=== PATIENT | female | born 1955 | race Caucasian/White ===

== ENCOUNTER 2019-05-20 11:55 | Inpatient (IN) | payer OTHER, MEDICAID ==
[~2019-05-20] VITALS: Ht 170.2 cm; Wt 79.8 kg
[2019-05-20 11:55] VITALS: BP_SYST 96
[2019-05-20] MEDS ORDERED: LORazepam 1 MG TABLET PO ONE (12:15)
[2019-05-20 12:48] LABS: BASOPHILS % (AUTO) 0.4 % (0.0-2.0); EOSINOPHILS % (AUTO) 0.4 % (0.0-4.0); HEMOGLOBIN 13.4 g/dL (12.0-16.0); LYMPHOCYTES # (AUTO) 1.9 K/uL (1.0-5.5); LYMPHOCYTES % (AUTO) 35.7 % (20.5-51.5); MEAN CORPUSCULAR HEMOGLOBIN 35 pg (27-31); MEAN CORPUSCULAR HGB CONC 34 % (32-36); MEAN CORPUSCULAR VOLUME 101 fL (79.0-98.0); MONOCYTES # (AUTO) 0.6 K/uL (0.0-1.0); MONOCYTES % (AUTO) 12.1 % (1.7-9.3); NEUTROPHILS # (AUTO) 2.8 K/uL (1.8-7.7); NEUTROPHILS % (AUTO) 51.4 % (40.0-70.0); PLATELET COUNT (AUTO) 199 K/uL (130-430); RED BLOOD CELL COUNT(AUTO) 3.86 MIL/uL (4.2-6.2); RED CELL DISTRIBUTION WIDTH 12.5 % (9.0-15.0); WHITE BLOOD COUNT (AUTO) 5.4 K/uL (4.8-10.8)
[2019-05-20 12:56] LABS: ANION GAP 6 (5-15); CALCIUM 8.6 mg/dL (8.4-11.0); CHLORIDE 99 mmol/L (98-107); CREATININE 0.84 mg/dL (0.55-1.30); GLUCOSE 91 mg/dL (70-99); POTASSIUM 4.5 mmol/L (3.5-5.1); SODIUM SERUM 133 mmol/L (136-145); UREA NITROGEN, BLOOD 21 mg/dL (8-21)
[2019-05-20 12:59] LABS: GFR AFRICAN AMERICAN 88 mL/min (>90)
[2019-05-20 13:00] LABS: ALANINE AMINOTRANSFERASE 26 U/L (12-78); ALBUMIN 3.6 g/dL (3.4-4.8); ASPARTATE AMINOTRANSFERASE 17 U/L (10-37); CHOLESTEROL 152 mg/dL (<200); HDL CHOLESTEROL 75 mg/dL (>55); LDL CHOLESTEROL 64 mg/dL (<100); TOTAL BILIRUBIN 0.5 mg/dL (0.0-1.0); TRIGLYCERIDES 69 mg/dL (30-150)
[2019-05-20 13:01] LABS: ALCOHOL, BLOOD < 3 mg/dL (<10)
[2019-05-20 14:23] LABS: BILIRUBIN,URINE NEGATIVE (NEGATIVE); BLOOD, URINE 1+ (NEGATIVE); CLARITY/URINE SL CLOUDY (CLEAR); COLOR,URINE YELLOW (YELLOW); GLUCOSE,URINE NEGATIVE (NEGATIVE); KETONES,URINE NEGATIVE (NEGATIVE); LEUKOCYTE ESTERASE ,URINE 2+ (NEGATIVE); NITRITE, URINE NEGATIVE (NEGATIVE); PROTEIN URINE NEGATIVE (NEGATIVE); UROBILINOGEN,URINE 0.2 (0.2-1.0)
[2019-05-20 14:27] LABS: BACTERIA,URINE MODERATE /HPF (None Seen)
[2019-05-20 14:29] LABS: BARBITURATE, URINE NEGATIVE (NEG <=200); BENZODIAZEPINE, URINE NEGATIVE (NEG <=150); CANNABINOID, URINE NEGATIVE (NEG <=50); COCAINE, URINE NEGATIVE (NEG <=150); METHAMPHETAMINES SCREEN,URINE NEGATIVE (NEG <=500); OPIATE, URINE NEGATIVE (NEG <=100); PHENCYCLIDINE SCREEN,URINE NEGATIVE (NEG <=25); URINE AMPHETAMINE NEGATIVE (NEG <=500); URINE METHADONE NEGATIVE (NEG <=200); URINE OXYCODONE SCREEN NEGATIVE (NEG <=100); URINE PROPOXYPHENE SCREEN NEGATIVE (NEG <=300)
[2019-05-20 14:30] LABS: UR TRICYCLIC ANTIDEPRESSANTS NEGATIVE (NEG <=300)
[2019-05-20] MEDS ORDERED: ARIP10TA9 PO (14:59)
[2019-05-20] MEDS ORDERED: BENZ1TAB8 PO (14:59)
[2019-05-20] MEDS ORDERED: LEVOFLOXACIN 500 MG TABLET PO ONE (15:00)
[2019-05-20] MEDS ORDERED: FOLI-43 PO (15:11)
[2019-05-20] MEDS ORDERED: MOM PO (15:11)
[2019-05-20] MEDS ORDERED: PARO-63 PO (15:11)
[2019-05-20] MEDS ORDERED: FLUP10TA PO (15:11)
[2019-05-20] MEDS ORDERED: REM15 PO (15:11)
[2019-05-20] MEDS ORDERED: DIVA500T4 PO (15:11)
[2019-05-20] MEDS ORDERED: DOCU-144 PO (15:11)
[2019-05-20] MEDS ORDERED: ACET-2165 PO (15:11)
[2019-05-20] MEDS ORDERED: VITD2000 PO (15:11)
[2019-05-20] MEDS ORDERED: MELA3TAB64 PO (15:11)
[2019-05-20] MEDS ORDERED: LEVO125T8 PO (15:11)
[2019-05-20] MEDS ORDERED: LEVOFLOXACIN 250 MG/D5W 50 ML IV SCH (16:00)
[2019-05-20 16:06] VITALS: BP_SYST 93
[2019-05-20 21:46] VITALS: BP_SYST 105
[2019-05-21 00:42] VITALS: BP_SYST 100
[2019-05-21 07:26] LABS: BASOPHILS % (AUTO) 0.5 % (0.0-2.0); EOSINOPHILS % (AUTO) 0.9 % (0.0-4.0); HEMOGLOBIN 11.4 g/dL (12.0-16.0); LYMPHOCYTES # (AUTO) 1.5 K/uL (1.0-5.5); LYMPHOCYTES % (AUTO) 44.2 % (20.5-51.5); MEAN CORPUSCULAR HEMOGLOBIN 35 pg (27-31); MEAN CORPUSCULAR HGB CONC 34 % (32-36); MEAN CORPUSCULAR VOLUME 101 fL (79.0-98.0); MONOCYTES # (AUTO) 0.5 K/uL (0.0-1.0); MONOCYTES % (AUTO) 13.1 % (1.7-9.3); NEUTROPHILS # (AUTO) 1.4 K/uL (1.8-7.7); NEUTROPHILS % (AUTO) 41.3 % (40.0-70.0); PLATELET COUNT (AUTO) 166 K/uL (130-430); RED BLOOD CELL COUNT(AUTO) 3.26 MIL/uL (4.2-6.2); RED CELL DISTRIBUTION WIDTH 12.1 % (9.0-15.0); WHITE BLOOD COUNT (AUTO) 3.5 K/uL (4.8-10.8)
[2019-05-21 07:30] LABS: CALCIUM 8.6 mg/dL (8.4-11.0); CREATININE 0.71 mg/dL (0.55-1.30); POTASSIUM 4.6 mmol/L (3.5-5.1)
[2019-05-21 08:16] VITALS: BP_SYST 122
[2019-05-21 10:50] VITALS: BP_SYST 114
[2019-05-21] MEDS ORDERED: LORazepam 1 MG TABLET PO PRN (11:30)
[2019-05-21 14:25] VITALS: BP_SYST 122
[2019-05-21] MEDS ORDERED: LEVO750T45 PO (14:30)
== END 2019-05-21 14:45 | DRG 690 ==
LOC: SED 11:55 → SMU 15:39
PROVIDERS: ADMIT Internal Medicine; ATTEND Internal Medicine
DX: N39.0 Urinary tract infection, site not specified (principal); E03.9 Hypothyroidism, unspecified; F20.9 Schizophrenia, unspecified; Z88.0 Allergy status to penicillin; Z79.899 Other long term (current) drug therapy
CPT/HCPCS: 36415; 71045; 80048; 80053; 80061; 80307; 81000-TC; 83036; 85025; 87081; 87086; 87186-TC; 99285; G0482; J1956

== ENCOUNTER 2021-01-11 11:50 | Emergency (ER) | payer OTHER, MEDICAID, SELFPAY ==
[~2021-01-11] VITALS: Ht 175.3 cm; Wt 67.1 kg
[~2021-01-11 11:50] MED LIST: ACET325T PO; ARIP10TA9 PO; BENZ1TAB8 PO; DIVA500T4 PO; DOCU-144 PO; FLUP10TA12 PO; FOLI-43 PO; LEVO125T8 PO; LEVO750T45 PO; MELA3TAB41 PO; MIRT-114 PO; MOM PO; PARO-63 PO; VITD2000 PO
[2021-01-11 12:01] VITALS: BP_SYST 107
[2021-01-11 12:17] LABS: BASOPHILS % (AUTO) 0.4 % (0.0-2.0); EOSINOPHILS % (AUTO) 0.9 % (0.0-4.0); HEMATOCRIT 41.5 % (36-48); HEMOGLOBIN 14.2 g/dL (12.0-16.0); LYMPHOCYTES # (AUTO) 1.3 K/uL (1.0-5.5); LYMPHOCYTES % (AUTO) 27.3 % (20.5-51.5); MEAN CORPUSCULAR HEMOGLOBIN 35 pg (27-31); MEAN CORPUSCULAR HGB CONC 34 % (32-36); MEAN CORPUSCULAR VOLUME 102 fL (79.0-98.0); MONOCYTES # (AUTO) 0.5 K/uL (0.0-1.0); MONOCYTES % (AUTO) 11.6 % (1.7-9.3); NEUTROPHILS # (AUTO) 2.8 K/uL (1.8-7.7); NEUTROPHILS % (AUTO) 59.8 % (40.0-70.0); PLATELET COUNT (AUTO) 182 K/uL (130-430); RED BLOOD CELL COUNT(AUTO) 4.08 MIL/uL (4.2-6.2); RED CELL DISTRIBUTION WIDTH 13.1 % (9.0-15.0); WHITE BLOOD COUNT (AUTO) 4.6 K/uL (4.8-10.8)
[2021-01-11 12:42] LABS: ANION GAP 11 (5-15); CALCIUM 9.3 mg/dL (8.4-11.0); CHLORIDE 100 mmol/L (98-107); CREATININE 0.93 mg/dL (0.55-1.30); GLUCOSE 97 mg/dL (70-99); POTASSIUM 3.9 mmol/L (3.5-5.1); SODIUM SERUM 136 mmol/L (136-145); UREA NITROGEN, BLOOD 12 mg/dL (8-21)
[2021-01-11 12:44] LABS: GFR AFRICAN AMERICAN 77 mL/min (>90)
[2021-01-11 12:47] LABS: ACETAMINOPHEN 7 ug/mL (1-30); ALANINE AMINOTRANSFERASE 14 U/L (12-78); ALBUMIN 4.1 g/dL (3.4-4.8); ASPARTATE AMINOTRANSFERASE 20 U/L (10-37); TOTAL BILIRUBIN 0.4 mg/dL (0.0-1.0)
[2021-01-11 12:48] LABS: ALCOHOL, BLOOD < 3 mg/dL (<10)
[2021-01-11 13:00] LABS: CHOLESTEROL 189 mg/dL (<200); HDL CHOLESTEROL 85 mg/dL (>55); LDL CHOLESTEROL 88 mg/dL (<100); TRIGLYCERIDES 42 mg/dL (30-150)
[2021-01-11 13:14] VITALS: BP_SYST 107
== END 2021-01-11 13:10 | disposition home or self-care (01) ==
LOC: SED 11:50
DX: F20.0 Paranoid schizophrenia (principal); F31.9 Bipolar disorder, unspecified; F03.90 Unspecified dementia, unspecified severity, without behavioral disturbance, psychotic disturbance, mood disturbance, and anxiety; Z88.0 Allergy status to penicillin; Z79.899 Other long term (current) drug therapy; Z20.822 Contact with and (suspected) exposure to COVID-19
CPT/HCPCS: 36415; 80053; 80061; 83036; 85025; 87081; 87426; 99283; G0480; G0481; G0482